=== PATIENT | female | born 1980 | race Hispanic/Latino ===

== ENCOUNTER 2024-05-03 19:21 | Emergency (ER) | payer SELFPAY ==
[2024-05-03 19:24] VITALS: BP 150/80
[2024-05-03 19:59] LABS: % Basophils 0.3 % (0-2); % Eosinophils 3.5 % (0-6); % Immature Granulocytes 0.2 % (0-0.5); % Lymphocytes 48.1 % (20.5-51.1); % Monocytes 7.5 % (1.7-9.3); % Neutrophils 40.4 % (42.2-75.2); Absolute Eosinophils 0.2 10^3/uL (0-0.7); Absolute Lymphocytes 2.8 10^3/uL (1.2-3.4); Absolute Monocytes 0.4 10^3/uL (0.1-0.6); Absolute Neutrophils 2.3 10^3/uL (1.4-6.5); Hematocrit 39.1 % (37.0-47.0); Hemoglobin 13.6 g/dL (12.0-16.0); Mean Corp Hgb Conc. 34.8 g/dL (33.0-37.0); Mean Corpuscular Hgb 28.2 pg (27.0-31.0); Nucleated Red Blood Cells % 0 %; Red Blood Cell Count 4.83 10^6/uL (4.20-5.40); Red Cell Dist. Width 14.1 % (11.5-14.5); White Blood Cell Count 5.8 10^3/uL (4.8-10.8)
[2024-05-03 20:03] LABS: ALT (SGPT) 100 U/L (0-35); AST (SGOT) 112 U/L (14-36); Albumin 4.3 g/dl (3.5-5.0); Alkaline Phosphatase 106 U/L (38-126); Blood Urea Nitrogen 14 mg/dl (7-17); Calcium 9.2 mg/dl (8.4-10.2); Carbon Dioxide 29 mmol/L (22-30); Chloride 102 mmol/L (98-107); Glucose 144 mg/dl (70-99); Potassium 4.1 mmol/L (3.5-5.1); Sodium 140 mmol/L (135-145); Total Bilirubin 0.6 mg/dl (0.2-1.3); Total Protein 7.9 g/dl (6.3-8.2); eGFR > 60.00
[2024-05-03 20:15] LABS: Mean Platelet Volume 11.4 fL (7.4-10.4); Platelet Count 94 10^3/uL (130-400)
--- NOTE | 2024-05-03 21:37 | ED.GENMED ---
History of Present Illness
General
Chief Complaint: Back Pain
Source: patient and international guest coordinator (Daughter)
Exam Limitations: other (language barrier)
Time Seen by Provider: 05/03/24 20:52
History of Present Illness
History of Present Illness:
This is a 43 year old female that comes in with c/o left sided low back pain. States that this started 3 days ago. State that the pain goes into her buttocks and down the left leg. States that she has had occasional chest discomfort and that she had
some bright red blood in her stool three days ago. Denies any fever, chills, SOB, abd pain, nausea, vomiting, diarrhea, headache, dizziness, urinary burning.
Past History
Past History
ED Past Medical History: Other (Pneumonia. Respiratory failure, Pre Diabetes, )
ED Past Surgical History: None
Social History
Tobacco: Non-smoker
Alcohol: None
Personal: Single
Living: with family
Review of Systems
Review of Systems
Unable to obtain full review of systems at this time due to: language barrier
Other source history: family (Daughter)
All Other Systems: ROS reviewed and negative except as documented in HPI and ROS
Constitutional: Reports no symptoms; Denies fever or chills
EENT: Reports no symptoms
Respiratory: Reports no symptoms; Denies cough or trouble breathing
Cardiac: Reports chest pain (occasionally)
ABD/GI: Reports no symptoms; Denies abdominal pain, nausea, vomiting or diarrhea
: Reports no symptoms; Denies dysuria, frequency or urgency
Musculoskeletal: Reports back pain (Left sided low back pain)
Skin: Reports no symptoms
Neurological: Reports no symptoms; Denies dizzy or headache
Psychiatric: Reports no symptoms
Phy Exam
General Physical Exam
General Presentation: mild distress
General age: appears stated age
General Skin: warm and dry
General Habitus: normal
General Mental: alert
General Hydration: appears well hydrated
ENT Exam
ENT Exam: TM's normal, pharynx normal and neck supple
Eye Exam
Eye Exam: EOMI
Cardiovascular Exam
Cardiovascular Exam: regular rate/rhythm, no edema, no murmur and normal peripheral pulses
Pulmonary Exam
Pulmonary Exam: lungs clear, no respiratory distress, no rales, chest non tender, no crackles, no rhonchi, no wheezing and no cough
Gastrointestinal Exam
Gastrointestinal Exam: normal bowel sounds, soft, no organomegaly, no pulsatile mass, non distended and tender (LLQ tenderness with palpation)
Musculoskeletal Exam
Musculoskeletal Exam: full ROM and no edema
Skin Exam
Skin Exam: normal color, warm/dry, no rash and no petechia
Psychiatric Exam
Psychiatric Exam: normal mood/affect
Course
Orders/Labs/Results
Orders:
Orders
05/03/24 19:34
Complete Blood Count/With Diff Urgent
Comprehensive Metabolic Panel Urgent
HCG, Serum Qualitative Screen Urgent
Comment: ADD ON
05/03/24 21:34
Add On- LAB Urgent
Tests Added?: HCG
CT Abd/pelvis W Iv Cont Urgent
Comment:
Reason For Exam: Left lower abd pain
0.9% Sodium Chloride 1000 ml [Nss] 1,000 ml IV BOLUS
05/03/24 21:35
Ketorolac [Toradol] 30 mg IV NOW STA
05/03/24 21:37
Acetaminophen [Tylenol] 1,000 mg PO NOW STA
05/03/24 22:32
Urinalysis Reflex To Culture Urgent
Date Specimen was Collected: 05/03/24
Time Specimen was Collected: 22:30
Abnormal Lab Results
05/03/24
19:34
Plt Count 94 L 10^3/uL
(130-400)
MPV 11.4 H fL
(7.4-10.4)
Neutrophils % 40.4 L %
(42.2-75.2)
Glucose 144 H mg/dl
(70-99)
AST 112 H U/L
(14-36)
ALT 100 H U/L
(0-35)
05/03/24 19:34
05/03/24 19:34
Thrombocytopenia, Hyperglycemia, AST/ALT elevation but improved from prior labs. Urine negative or infection. HCG negative.
Vital Signs
Initial and Last Documented VS:
Initial Vital Signs
Temp Pulse Resp BP Pulse Ox
98.1 F 86 16 150/80 98
05/03/24 19:24 05/03/24 19:24 05/03/24 19:24 05/03/24 19:24 05/03/24 19:24
Last Documented Vital Signs
Temp Pulse Resp BP Pulse Ox
98.1 F 80 18 116/67 98
05/03/24 19:24 05/03/24 22:20 05/03/24 22:20 05/03/24 22:20 05/03/24 22:20
MDM/Problems Addressed
Differential Diagnosis Includes:
Sciatic pain. Renal calculus, Pyelonephritis,
MDM/Problems Addressed:
This is a 43 year old female that comes in with c/o left sided low back pain. States that she also has left Lower quadrant discomfort and had some bright red blood in her stool three days ago.
Will check labs. Urine, Medicate for pain. X-ray low back and CT abd.
Back into see patient and daughter. Explained that her blood work shows that her Plt count is low and her liver enzymes are elevated. However, the liver enzymes are improved from prior labs. Encouraged patient to follow up in the clinic. Due to the
fact that patient is pre diabetic will avoid Steroids. Patient to use heat or ice to the back and Alternate with Tylenol and ibuprofen for pain. Patient to return with any concerns.
Chronic conditions affecting care:
NA
Acute Exacerbation and/or Progression of Chronic Illness:
NA
*Radiology
Radiology exam reviewed: radiology read reviewed (CT-Prominent vessels in the left pelvis which can be seen with Pelvic congestion syndrome. Mild splenomgely. Nodular hepatic margin. This is suggestive of Cirrhosis. )
*Pulse Oximetry
Patient hypoxic: no
*EKG
Interpreted by ED Provider?: NA
Rate: EKG- N/A
*Shoe Caser Interpretation
Rate: Shoe Caser- N/A
*Critical Care Note
Total Time (30-74mins, 75-104mins- exclusive of procedures): Not Applicable
ED Attending Note
-
Portions of this chart may have been created with voice recognition software.� Occasional wrong word or��sound alike� substitutions may have occurred due to the inherent limitations of voice recognition software.
Discharge Plan
Departure
Patient Disposition: Home (Routine Discharge)
Date of Disposition: 05/03/24
Time of Disposition: 23:44
Patient with high blood pressure during this ER visit?: No
Condition: Good
Covid-19: Not Applicable
Discharge Problem:
Sciatica
Instructions: Sciatica (DC)
Prescriptions:
No Action
acetaminophen 325 MG tablet
650 mg PO Q6HPRN PRN (Reason: pain with UTI)
apixaban [Eliquis] 2.5 MG tablet
2.5 mg PO BID Qty: 56 0RF
Referrals:
NONE,* [Family Provider] -
Activity Restrictions/Additional Instructions:
As discussed, your blood work shows that your Platelets are low and your liver enzymes are elevated. Your Liver enzymes have come down from your prior labs. Your urine is negative for infection. Your CT scan is negative for any acute process. This
is most likely Sciatic pain. You may use Ibuprofen 600mg every 6 hours with food for pain. You may also use heat or ice to the low back which ever makes you feel better. Please try and get into the Clinic so you have a primary care doctor. IF YOU
HAVE ANY OTHER CONCERNS PLEASE RETURN TO THE EMERGENCY ROOM
Interventions
Interventions:
*Risk Screen - Suicide Last Done: 05/03/24 19:24
*General Assessment Last Done: 05/03/24 19:24
*Neglect/Abuse Screening Last Done: 05/03/24 19:24
ED- Fall Risk Assessment Last Done: 05/03/24 22:13
*ED COVID-19 Vaccine History Last Done: 05/03/24 19:24
ED-Musculoskeletal Assessment Last Done: 05/03/24 22:13
Discharge Date and Time
Print Language: [id number]
[2024-05-03] MEDS: TORADOL 30 MG IV (21:45)
[2024-05-03] MEDS: TYLENOL 1000 MG PO (21:45)
[2024-05-03] MEDS: NSS 1000 IV (21:45)
[2024-05-03 22:17] LABS: HCG, Serum Qualitative Screen Negative
[2024-05-03 22:20] VITALS: BP 116/67
[2024-05-03 22:40] LABS: Urine Albumin Negative (Neg - Trace); Urine Bilirubin Negative (Negative); Urine Character Clear (Clear); Urine Color Yellow; Urine Glucose Negative (Negative); Urine Ketone Negative (Negative); Urine Leukocyte Negative (Negative); Urine Nitrite Negative (Negative); Urine Occult Blood Negative (Negative); Urine Urobilinogen Negative (Neg - 1+)
[2024-05-03 23:43] VITALS: BMI 37.9
== END 2024-05-04 00:10 | disposition home or self-care (01) ==
LOC: EMR 19:21
PROVIDERS: Clinical Nurse Specialist Family Health; Emergency Medicine; EMERGENCY PHYSICIAN Emergency Medicine
DX: M54.40 Lumbago with sciatica, unspecified side (principal)
CPT/HCPCS: 99285; 96374; 96361; 74177; 80053; 81003; 84703; 85025; Q9967